=== PATIENT | female | born 1965 | race Caucasian/White ===

== ENCOUNTER 2022-02-19 13:57 | Outpatient (REF) | payer BC, SELFPAY ==
--- NOTE | 2022-02-19 13:35 | PAPFT_PTH ---
PATIENT: Eli Jiang LOC: [facility] U#:[id number] AGE/SX: 56/F ROOM: RE02/19/[address]: Brandee Villanueva MD : [id number] BED: DIS: 02/19/2022 SPEC #: [id number] RECD: 02/19/22 17:27 STATUS: ADRIAN REDestiny #: [id number] YVES: 02/19/22 13:[address]: Brandee Villanueva DEPT: [facility] Cytology RECD BY: Caryn Short Tissues: 1 - CX/ENDOCX FOR PAP SMEARS Procedures: PAP THIN PREP/[facility] Screening HPV DNA PROBE Comments: [id number]
== END 2022-02-19 13:58 | disposition home or self-care (01) ==
LOC: LBN 13:57
PROVIDERS: Visit Provider Obstetrics & Gynecology
DX: Z12.4 Encounter for screening for malignant neoplasm of cervix (principal); Z11.51 Encounter for screening for human papillomavirus (HPV)
CPT/HCPCS: 88142; 87624